=== PATIENT | male | born 1940 | race Caucasian/White ===

== ENCOUNTER → 2018-12-14 | Outpatient (CLI) | payer OTHER ==
--- NOTE | 2018-12-14 17:27 | CARDNUC ---
[place] [address] CARDIAC NUCLEAR IMAGING REPORT Name: GRACY STEWART Room: [facility]#: [id number] Admission: 12/14/18 Attend Phys: Stewart Neil, Discharge: Date of : 42 Date of Service: 12/14/18 1727 Report #: [id number] THIS REPORT FOR: //name// APPROVED REPORT Study performed: 12/14/2018 09:43:45 Exam: Nuclear Stress Test Indication: Chest pain, Dyspnea, Fatigue. Patient Location: Out-Patient Stress Tech: Harriett Quiroga Stress Nurse: Vicki Delgado RN Ht: 5 ft 11 in Wt: 212 lbs BSA: 2.16 m2 BMI: 29.56 Medical History Medical History: Angina, CAD non obstructive, COPD, increased Fatigue, Kidney stones, HTN , Diabetes, Hyperlipidemia, Obesity , SOB. Medications: ASA 81 Mg, Metformin, Glipizide, 2L 02 HS. Allergies: No known drug allergies Cardiac Risk Factors: Age, DM, HTN, Hyperlipidemia, SOB, Past Smoker, COPD, increased Fatigue. Previous Cardiac Procedures: None Pretest Chest Pain Characteristics: No chest pain Exercise History: Sedentary Physical Disabilities: DJD knee, generalized weakness/fatigue. Meds Held (24 hrs): None Stress Test Details Stress Test: Pharmacologic stress testing performed using 0.4 mg of regadenoson per 5 mL given IV over 10 seconds. Reason for pharmacologic stress test: DJD knee, generalized weakness/fatigue, COPD/O2 2L.. HR Resting HR: 77 bpm Max Heart Rate (APMHR): 143 bpm Max HR Achieved: 94 bpm Target HR (85% APMHR): 121 bpm % of APMHR: 65 Recovery HR: 90 bpm BP Resting BP: 163/89 mmHg Max BP: 140/68 [place] [address] CARDIAC NUCLEAR IMAGING REPORT Name: GRACY STEWART Room: [facility]#: [id number] Admission: 12/14/18 Attend Phys: Stewart Neil, Discharge: Date of : 42 Date of Service: 12/14/18 1727 Report #: [id number] ECG Resting ECG: Sinus Rhythm, nonspecific ST-T abnormalities Stress ECG: Sinus Rhythm, nonspecific ST-T abnormalities ST Change: None Arrhythmia: None Recovery ECG: Sinus Rhythm, nonspecific ST-T abnormalities Recovery ST Change: None Recovery Arrhythmia: None Clinical Reason for Termination: Completed protocol Stress Symptoms: SOA Exercise duration: 0 min 0 sec Exercise capacity: 1.00 METs Patient tolerated Lexiscan infusion without significant symptoms. Nurse Comments 78 year old male presented in wheelchair with increased fatigue, CP, SOA with DX COPD and needing a pre-op clearance for surgery. Patient was placed in semi-fowlers position r/t weakness and poor ECG quality. Patient tolerated Lexiscan well. Recovery unremarkable with PO caffeine. Patient was escorted via wheelchair by staff to Nuclear Medicine for images. Patient was stable with no complaints at that time. Stress ECG Conclusion The baseline 12-lead EKG shows sinus rhythm with nonspecific ST-T wave changes. EKGs obtained during and post Lexiscan infusion show sinus rhythm with no significant ST or T wave changes when compared to baseline. There were no stress-induced arrhythmias. NM EXAM: Myocardial Perfusion REST/STRESS Resting Data Rest SPECT myocardial perfusion imaging was performed in supine position 30 minutes following the intravenous injection of 11.5 mCi of Tc-99m Sestamibi. Time of rest injection: 07:35 The images were gated to evaluate regional wall motion and calculate left ventricular ejection fraction. Administration Route: IV Administration Site: [place] [address] CARDIAC NUCLEAR IMAGING REPORT Name: STEWARTGRACY Room: [facility]#: [id number] Admission: 12/14/18 Attend Phys: Stewart Neil, Discharge: Date of : 42 Date of Service: 12/14/18 1727 Report #: [id number] Pharmacologic Stress Pharmacologic stress test was performed by injecting Regadenoson 0.4 mg IV push followed by the intravenous injection of 32.8 mCi of Tc-99m Sestamibi. Time of stress injection: 09:55 Administration Route: IV Administration Site: Right Arm Heart Rate at time of stress injection: 92 bpm. Gated Stress SPECT was performed 45 minutes after stress injection. The images were gated to evaluate regional wall motion and calculate left ventricular ejection fraction. Study Quality Study: Good Study Data At rest, the left ventricular ejection fraction was 28%.. Post stress, the left ventricular ejection was 38%.. TID = 0.94. Perfusion Perfusion images obtained at rest and post stress show a large in size severe intensity defect of the inferior and inferoseptal wall consistent with prior infarct. There were no reversible defects to suggest ongoing ischemia. Wall Motion There is a significant wall motion abnormality noted. Global LV systolic function is moderately decreased. Nuclear Conclusion ECG Findings: non-diagnostic Clinical Findings: negative for ischemia Nuclear Findings: negative for ischemia Exercise Capacity: not assessed Left Ventricular Function: abnormal Myocardial perfusion images suggest prior inferior and inferoseptal wall infarct with severe left ventricular systolic dysfunction. This is a high risk study based on significant left ventricular systolic dysfunction. There was no evidence however of ischemia. <Conclusion> The baseline 12-lead EKG shows sinus rhythm with nonspecific ST-T wave changes. EKGs obtained during and post [place] [address] CARDIAC NUCLEAR IMAGING REPORT Name: GRACY STEWART Room: [facility]#: [id number] Admission: 12/14/18 Attend Phys: Stewart Neil, Discharge: Date of : 42 Date of Service: 12/14/18 1727 Report #: [id number] sinus rhythm with no significant ST or T wave changes when compared to baseline. There were no stress-induced arrhythmias. <ELECTRONICALLY SIGNED> By: Shai Aponte MD, FACC 12/14/18 172 26 26 Shai Aponte MD, FACC /INF
== END ==
LOC: M.NUC 12-04 09:13
DX: I25.84 Coronary atherosclerosis due to calcified coronary lesion (principal); I10 Essential (primary) hypertension; J44.9 Chronic obstructive pulmonary disease, unspecified; K21.9 Gastro-esophageal reflux disease without esophagitis; M19.90 Unspecified osteoarthritis, unspecified site; E11.9 Type 2 diabetes mellitus without complications; E78.5 Hyperlipidemia, unspecified; Z79.84 Long term (current) use of oral hypoglycemic drugs; Z87.891 Personal history of nicotine dependence

== ENCOUNTER → 2019-01-01 | Outpatient (CLI) | payer OTHER ==
[2019-01-01] VITALS (7 sets, daily range): BP systolic 129–146; BP diastolic 53–89
[~2019-01-01] VITALS: Ht 177.8 cm; Wt 85.7 kg
[~2019-01-01] MED LIST: ASPIR 8181 MG PO; BYSTOLIC 5 MG5 M1 PO; COMBIVENT INH; DOXYCYCLINE 10100 MG PO; GLUCOTROL5 MG PO; METFORMIN HCL500 MG PO; PREDNISONE 10 M10 MG PO; SINGULAIR 10 MG10 M1 PO; SYMBICORT160 MCG/4. INH; VENTOLIN HFA 1818 GM INH; XALATAN2.5 ML OPHTHALMIC
[2019-01-01 09:02] LABS: HEMATOCRIT 40.1 % (42.0-52.0); HEMOGLOBIN 13.7 gm/dL (14.0-18.0); MCH 30.6 pg (26.0-34.0); MCHC 34.1 g/dL (28.0-37.0); MCV 89.6 fL (80.0-100.0); MPV 7.2 fl. (7.2-11.1); RBC 4.47 mil/uL (4.50-6.00); RDW-CV 13.7 % (10.5-14.5); WBC 11.1 thou/uL (4.0-11.0)
--- NOTE | 2019-01-01 09:03 | EKG ---
[place] [address] ELECTROCARDIOGRAM REPORT Name: GRACY STEWART Room: [facility]#: [id number] Admission: 01/01/19 Attend Phys: Vahe Franks MD, F Discharge: Date of : 42 Report #: [id number] THIS REPORT FOR: //name// [facility] Test Date: 2019-01-01 Test Time: 08:55:15 Pat Name: GRACY ACOSTAICK Department: Room: Gender: M Library Circulation Assistant: : 1940 Requested By: Vahe Franks Order Number: [id number] Reading MD: Vahe Franks Measurements Intervals [place] Rate: 80 P: 72 NH: 137 QRS: 56 QRSD: 141 T: 76 QT: 394 QTc: 455 Interpretive Statements Sinus rhythm Nonspecific intraventricular conduction delay Borderline ST depression, lateral leads No previous ECG available for comparison Electronically Signed On 01-01-2019 9:03:07 CDT by Vahe Franks [email or web address] <ELECTRONICALLY SIGNED> By: Vahe Franks MD, [facility] 01/01/19902 0855 0855 Vahe Franks MD, FACC /EPI
[2019-01-01 09:09] LABS: ANION GAP 9 mmol/L (7-16); BUN 12 mg/dL (7-18); CALCIUM 9.4 mg/dL (8.5-10.1); CHLORIDE 101 mmol/L (98-107); CO2 26 mmol/L (21-32); CREATININE 1.1 mg/dL (0.6-1.3); GLUCOSE 136 mg/dL (70-99); POTASSIUM 4.3 mmol/L (3.5-5.1); SODIUM 136 mmol/L (136-145)
[2019-01-01 09:10] LABS: APTT 35.2 Seconds (25.0-31.3); PROTIME 10.7 Seconds (9.20-11.50)
[2019-01-01 09:13] LABS: ALBUMIN 3.4 g/dL (3.4-5.0); ALKALINE PHOSPHATASE 19 U/L (46-116); CHOLESTEROL 154 mg/dL (<200); HDL CHOLESTEROL 44 mg/dL (>40); LDL CHOLESTEROL 97 mg/dL (<100); SGOT 12 U/L (15-37); SGPT 13 U/L (30-65); TC:HDL 3.5 Ratio (Not establshd); TOTAL BILIRUBIN 0.7 mg/dL (<0.1-1.0); TOTAL PROTEIN 7.9 g/dL (6.4-8.2); TRIGLYCERIDE 68 mg/dL (<150); VLDL 14 mg/dL (<40)
[2019-01-01 09:14] LABS: SERUM ASSESSMENT Clear
--- NOTE | 2019-01-01 11:13 | CARD ---
[address] [address] CARDIAC CATH REPORT Name: GRACY STEWART Aydee [id number] Admission: 01/01/19 Attend Phys: Vahe Franks MD, F Discharge: Date of : 42 Report #: [id number] THIS REPORT FOR: //name// APPROVED REPORT Study performed: 01/01/2019 09:09:11 Patient Details Patient Status: Out-Patient Room #: The patient is a 78 year-old male Event Personnel Vhae Franks Professor Of Radiology, Katrin Church RN Patient Care Technician, Min Garcia (R) Monitor, Moose Benjamin PAINT SPECIALIST Scrub Procedures Performed Left Heart Cath w/or w/o Coronaries Indication Positive stress test, Chest pain Risk Factors Chronic Lung Disease, Diabetes Tobacco History () Admission/Lab Medications/Medications given during procedure Heparin Unfract. Procedure Narrative The patient was brought electively to the Cardiac Catheterization Laboratory and was prepped and draped in a sterile manner. The right wrist was infiltrated with 1% Lidocaine subcutaneous anesthesia. A Slender Glidesheath sheath was inserted into the right radial artery. Coronary angiography was performed using coronary diagnostic catheters. The right coronary system was accessed and visualized with a Diagnostic JR4 catheter. The left coronary system was accessed and visualized with a Diagnostic JL4 catheter. The left ventricle was accessed and visualized with a Diagnostic Angled Pig catheter. Left ventricular/Aortic Valve gradient assessed via catheter pullback. Left ventriculogram was performed in BEAL projection. Closure device was deployed with a 6 Fr vascband. The patient tolerated the procedure well and there were no complications associated with the procedure. There was no hematoma[place] [address] CARDIAC CATH REPORT Name: GRACY STEWART Room: [facility]#: [id number] Admission: 01/01/19 Attend Phys: Vahe Franks MD, F Discharge: Date of : 42 Report #: [id number] Sedation start time: 9:40 Case end Time: 10:02 Versed 2 mg Fluoro Time: 1.7 minutes Dose: DAP 26460 cGycm2 488 mGy Contrast Type and Amount: Omnipaque 100 ml Coronary Angiography The patient's coronary anatomy is right dominant. Diagnostic Cath Left Main 0% stenosis LAD 50% proximal stenosis. 80% mid stenosis prior to small second diagonal branch, and 90% stenosis after small 2nd diagonal branch OM2 80% mid stenosis Right Coronary 90% proximal and 60% mid stenosis Left Ventriculography The left ventricular ejection fraction is estimated to be 50-55%. Left ventricular wall motion abnormalities are present. There is 1+ mitral insufficiency. mild inferior wall hypokinesis noted Hemodynamics The aortic pressure is 91/43 mmHg with a mean of 64 mmHg. The left ventricular pressure is 108/10 mmHg with a mean of mmHg. The left ventricular end diastolic pressure is 15 mmHg. There was no gradient across the aortic valve upon pullback. Pullback from the left ventricle to the aorta revealed no gradient across the aortic valve. Conclusion 1. severe 3 vessel CAD 2. LVEF 50-55% Recommendations CABG <ELECTRONICALLY SIGNED> By: Vahe Franks MD, [facility] 01/01/19 1112 1112 [id number] Franks MD, FACC /INF
== END ==
LOC: M.CL 12-30 09:00
PROVIDERS: Internal Medicine Cardiovascular Disease
DX: R07.9 Chest pain, unspecified (principal); R06.00 Dyspnea, unspecified; K21.9 Gastro-esophageal reflux disease without esophagitis; I10 Essential (primary) hypertension; E11.9 Type 2 diabetes mellitus without complications; J44.9 Chronic obstructive pulmonary disease, unspecified; Z79.82 Long term (current) use of aspirin; Z79.899 Other long term (current) drug therapy